=== PATIENT | female | born 1945 | race Caucasian/White ===

== ENCOUNTER → 2023-10-14 12:02 | Outpatient (REF) | payer MEDICARE, OTHER, SELFPAY | LOC: PAVMRI 12:02 | PROVIDERS: ATTENDING PHYSICIAN Specialist; FAMILY PHYSICIAN Family Medicine | DX: M25.551 Pain in right hip (principal) | CPT/HCPCS: 72148; 73721 ==

== ENCOUNTER → 2023-11-05 09:07 | Outpatient (REF) | payer MEDICARE, OTHER, SELFPAY ==
[2023-11-05 12:56] LABS: ALT (SGPT) 19 U/L (0-35); AST (SGOT) 26 U/L (14-36); Albumin 4.4 g/dl (3.5-5.0); Alkaline Phosphatase 73 U/L (38-126); Blood Urea Nitrogen 13 mg/dl (7-17); Calcium 9.7 mg/dl (8.4-10.2); Carbon Dioxide 26 mmol/L (22-30); Chloride 104 mmol/L (98-107); Glucose 98 mg/dl (70-99); HDL Cholesterol 74 mg/dl; LDL Cholesterol, Calculated 118 mg/dl; Potassium 4.8 mmol/L (3.5-5.1); Sodium 141 mmol/L (135-145); Total Bilirubin 0.6 mg/dl (0.2-1.3); Total Cholesterol 216 mg/dl (50-199); Total Protein 7.2 g/dl (6.3-8.2); Triglyceride 121 mg/dl (10-149); Very Low Density Lipoprotein 24 mg/dl (0-30); eGFR > 60.00
[2023-11-05 13:31] LABS: Urine Albumin Negative (Neg - Trace); Urine Bilirubin Negative (Negative); Urine Character Clear (Clear); Urine Color Yellow; Urine Glucose Negative (Negative); Urine Ketone Negative (Negative); Urine Leukocyte Negative (Negative); Urine Nitrite Negative (Negative); Urine Occult Blood Negative (Negative); Urine Urobilinogen Negative (Neg - 1+)
== END ==
LOC: REG 09:07
PROVIDERS: ATTENDING PHYSICIAN Family Medicine
DX: I10 Essential (primary) hypertension (principal); E78.00 Pure hypercholesterolemia, unspecified; N39.0 Urinary tract infection, site not specified
CPT/HCPCS: 36415; 80053; 80061; 81003; 87086

== ENCOUNTER → 2024-05-16 10:57 | Outpatient (REF) | payer MEDICARE, OTHER, SELFPAY | LOC: WDC 10:57 | PROVIDERS: ATTENDING PHYSICIAN Family Medicine | DX: Z12.31 Encounter for screening mammogram for malignant neoplasm of breast (principal); Z12.39 Encounter for other screening for malignant neoplasm of breast; Z85.3 Personal history of malignant neoplasm of breast | CPT/HCPCS: 77063; 77067 ==

== ENCOUNTER → 2024-08-28 14:56 | Outpatient (REF) | payer MEDICARE, OTHER, SELFPAY | LOC: RAD 14:56 | PROVIDERS: ATTENDING PHYSICIAN Family Medicine | DX: M54.50 Low back pain, unspecified (principal) | CPT/HCPCS: 72110 ==

== ENCOUNTER → 2024-11-01 08:20 | Outpatient (REF) | payer MEDICARE, OTHER, SELFPAY | LOC: HWRAD 08:20 | PROVIDERS: ATTENDING PHYSICIAN Family Medicine | DX: S32.010G Wedge compression fracture of first lumbar vertebra, subsequent encounter for fracture with delayed healing (principal); M85.89 Other specified disorders of bone density and structure, multiple sites | CPT/HCPCS: 77080 ==

== ENCOUNTER → 2024-11-13 10:51 | Outpatient (REF) | payer MEDICARE, OTHER, SELFPAY | LOC: RADI 10:51 | PROVIDERS: ATTENDING PHYSICIAN Physician Assistant | DX: S32.010A Wedge compression fracture of first lumbar vertebra, initial encounter for closed fracture (principal); W19.XXXA Unspecified fall, initial encounter ==

== ENCOUNTER → 2024-12-04 06:51 | Outpatient (REF) | payer MEDICARE, OTHER, SELFPAY ==
[2024-12-04] VITALS (14 sets, daily range): BP systolic 52–127; BP diastolic 46–89
[2024-12-04 07:22] LABS: Hematocrit 43.0 % (37.0-47.0); Hemoglobin 14.4 g/dL (12.0-16.0); Mean Corp Hgb Conc. 33.5 g/dL (33.0-37.0); Mean Corpuscular Volume 90.9 fL (81.0-99.0); Platelet Count 257 10^3/uL (130-400); Red Cell Dist. Width 13.1 % (11.5-14.5)
[2024-12-04 07:31] LABS: INR 0.96; PT 13.1 Sec (11.4-14.6)
[2024-12-04] MEDS: ANCEF 10 IV (08:45)
--- NOTE | 2024-12-04 11:12 | PTCARENOTE ---
IRAD note: pre procedure heart monitor showed patient's HR in 30-50's with BBB and 1st degree block. Asymptomatic. post vertebroplasty, pt's HR remained same as preprocedure but heart monitor showed more of irregular rhythm. pt is asymptomatic, per
patient and patient's daughter Lorene, pt doesn't have any cardiac history. notified. EKG ordered. 2 different EKGs have different reading , one with SB with 1st degree block and another one with SR with 2nd degree AV block. patient
notified of result. will take patient to ER for further evaluation.
--- NOTE | 2024-12-04 11:50 | PTCARENOTE ---
IRAD note: Took patient to ER triage after talking to ED charge nurse. right hand # [id number] left in place. ED nurse made aware. report given to ED nurse. daughter with patient at the time of transfer.
== END ==
LOC: RADI 06:51
PROVIDERS: ATTENDING PHYSICIAN Physician Assistant; FAMILY PHYSICIAN Family Medicine; REFERRING PHYSICIAN Physician Assistant
DX: S32.010A Wedge compression fracture of first lumbar vertebra, initial encounter for closed fracture (principal); D68.8 Other specified coagulation defects; M54.9 Dorsalgia, unspecified; X58.XXXA Exposure to other specified factors, initial encounter
CPT/HCPCS: 22514; 36415; 85027; 85610; 93005

== ENCOUNTER 2024-12-04 11:46 | Emergency (ER) | payer MEDICARE, OTHER, SELFPAY ==
[2024-12-04 11:51] VITALS: BP 109/62
[2024-12-04 12:04] VITALS: BP 132/109
--- NOTE | 2024-12-04 12:18 | ED.GENMED ---
History of Present Illness
General
Chief Complaint: Heart Rate Problem
Source: patient
Time Seen by Provider: 12/04/24 12:03
History of Present Illness
History of Present Illness:
79-year-old female with past medical history of hypertension, GERD, previous breast cancer status post vertebroplasty done 2 hours ago with interventional radiology here presenting to the ER after the procedure was completed and patient was
bradycardic, no history of bradycardia preoperatively patient is asymptomatic and otherwise states she feels well. Denies any use of beta-brielle medications. She has never seen cardiology in the past. Patient is denying any lightheadedness,
dizziness, sensation of syncope/near syncope, chest pain, shortness of breath, palpitations or any other concerns.
Past History
Past History
ED Past Medical History: Cancer (breast CA), GERD and HTN
ED Past Surgical History: Gynecological, Orthopedic and Other
Social History
Tobacco: Non-smoker
Alcohol: None
Drug: None
Personal:
Living: with family
Review of Systems
Review of Systems
All Other Systems: ROS reviewed and negative except as documented in HPI and ROS
Phy Exam
Physical Exam
Physical Exam:
GENERAL: Alert , in no apparent distress
EYE: conjunctiva clear
NECK: Supple
ENT: o/p clr, mmm.
CARDIAC: Regular rate bradycardic rate, intermittent ectopy noted on telemetry, rate between 38 bpm and 54 bpm but mostly sitting in the low 40s
LUNGS: Clear breath sounds bilaterally, no acute respiratory distress, no wheezes/rales/rhonchi
NEUROLOGICAL: Alert and oriented
SKIN: Warm and dry, skin intact.
MUSCULOSKELETAL: well perfused.
PSYCH: Normal and appropriate interaction.
Scores
Heart Failure Risk
Heart Failure Risk Score: Not Applicable
Heart Score for Chest Pain Patients
STEMI patient?: Not applicable
Withdrawal Assessment of Alcohol
Withdrawal Assessment Completed?: Not applicable
Course
Orders/Labs/Results
Orders:
Orders
12/04/24 12:08
Electrocardiogram (*1) Urgent
Reason for Study: Bradycardia / Tachycardia
EKG- Treatment ONCE
12/04/24 12:23
Complete Blood Count/With Diff Urgent
Comprehensive Metabolic Panel Urgent
Magnesium Urgent
TSH Urgent
Abnormal Lab Results
12/04/24
12:23
MPV 10.6 H fL
(7.4-10.4)
BUN 23 H mg/dl
(7-17)
Glucose 117 H mg/dl
(70-99)
12/04/24 12:23
12/04/24 12:23
Vital Signs
Initial and Last Documented VS:
Initial Vital Signs
Temp Pulse Resp BP Pulse Ox
98.0 F 46 20 109/62 96
12/04/24 11:51 12/04/24 11:51 12/04/24 11:51 12/04/24 11:51 12/04/24 11:51
Last Documented Vital Signs
Temp Pulse Resp BP Pulse Ox
98.0 F 43 10 111/73 97
12/04/24 11:51 12/04/24 14:45 12/04/24 14:45 12/04/24 14:00 12/04/24 14:45
[employer] consulted with Physician
[employer] consulted with physician?: Yes
Name of Physician Consulted: Noh
MDM/Problems Addressed
Differential Diagnosis Includes:
Asymptomatic bradycardia
First-degree heart block
Second-degree type I heart block
Side effect from anesthesia
Electrolyte imbalance
No concern for ACS
MDM/Problems Addressed:
79-year-old female presenting to the ER for evaluation after she had procedure done in IR today, following procedure found to be bradycardic into the low 30s. Patient asymptomatic. Her EKG from IR was reviewed which shows significant sinus
bradycardia with first-degree AV block. Here patient appears to still be in a sinus bradycardia with possible Mobitz type I heart block. Patient was placed on pacer pads, labs ordered. Cardiology team notified.
*Pulse Oximetry
SaO2: 96
Oxygen Mode of Delivery: Room air
Patient hypoxic: no
*EKG
Heart Rate: 50
Rate: bradycardiac
Rhythm: sinus
Interval: second degree mobitz I
Ischemia: no ischemia
*Clearing Supervisor Interpretation
Rate: bradycardiac
Heart Rate: 44
Rhythm: sinus
*Critical Care Note
Total Time (30-74mins, 75-104mins- exclusive of procedures): Not Applicable
Data Reviewed
Review of Other/Old Records Reveals: Records and Operative Reports
Source: patient, records and family
Patient Management
Discussion with other providers: Scalper Operator
Escalation/DeEscalation of care consider admission/obs:
Case discussed with cardiology team. Agree with EKG that patient has a Mobitz type I. At this time they recommend just observation. Patient can follow-up in office. Patient observed continuously on telemetry. At rest her heart rate would stay
around 40 bpm, while up and ambulating her heart rate would go up as high as 80 bpm. She has remained asymptomatic during this time. Will provide with outpatient cardiology information. Discussed return precautions to the ER including syncope,
near syncope, lightheadedness, chest pain or any other concerns. Patient is otherwise stable for discharge.
ED Attending Note
-
Portions of this chart may have been created with voice recognition software.� Occasional wrong word or��sound alike� substitutions may have occurred due to the inherent limitations of voice recognition software.
Discharge Plan
Departure
Patient Disposition: Home (Routine Discharge)
Date of Disposition: 12/04/24
Time of Disposition: 14:34
Patient with high blood pressure during this ER visit?: No
Discharge Problem:
Atrioventricular block, Mobitz type 1, [place]
Instructions: Heart Block, Adult (DC), Chest Pain DCA Follow Up
Prescriptions:
No Action
omeprazole 20 MG capsule,delayed release(DR/EC)
20 mg PO DAILY
simvastatin 10 MG tablet
10 mg PO QPM
hydrochlorothiazide 25 MG tablet
25 mg PO DAILY 0RF
Rx Instructions:
holed sbp <120
donepezil 10 mg Tablet
10 mg PO HS
tramadol 50 mg Tablet
50 mg PO Q8H PRN (Reason: pain)
calcium carbonate [Caltrate 600] 600 mg calcium (1,500 mg) Tablet
600 mg PO DAILY
lorazepam 0.5 mg Tablet
0.25 mg PO BID PRN (Reason: anxiety)
gabapentin 100 mg Capsule
200 mg PO BID
escitalopram oxalate 10 mg Tablet
10 mg PO DAILY
Probiotic 10 billion cell Capsule
10,000 mmu cells PO DAILY
Referrals:
Kelly Pearce MD [Family Provider, Family Practice]
Interventions
Interventions:
*Risk Screen - Suicide Last Done: 12/04/24 12:24
*General Assessment Last Done: 12/04/24 11:51
*Neglect/Abuse Screening Last Done: 12/04/24 12:24
*ED- Fall Risk Assessment Last Done: 12/04/24 12:24
*ED COVID-19 Vaccine History Last Done: 12/04/24 12:24
*Nursing Disposition Last Done: 12/04/24 15:17
ED- Cardiac Assessment Last Done: 12/04/24 12:27
ED- Pulmonary Assessment Last Done: 12/04/24 12:27
Discharge Date and Time
Discharge Date/Time: 12/04/24 15:18
Print Language: JAPANESE
[2024-12-04 12:24] VITALS: BMI 35.4
[2024-12-04 12:39] LABS: Hematocrit 42.4 % (37.0-47.0); Hemoglobin 14.0 g/dL (12.0-16.0); Mean Corp Hgb Conc. 33.0 g/dL (33.0-37.0); Mean Corpuscular Volume 92.8 fL (81.0-99.0); Nucleated Red Blood Cells % 0 %; Platelet Count 238 10^3/uL (130-400); Red Cell Dist. Width 13.2 % (11.5-14.5)
[2024-12-04 13:33] LABS: ALT (SGPT) 15 U/L (0-35); AST (SGOT) 21 U/L (14-36); Albumin 4.0 g/dl (3.5-5.0); Alkaline Phosphatase 53 U/L (38-126); Blood Urea Nitrogen 23 mg/dl (7-17); Calcium 9.4 mg/dl (8.4-10.2); Carbon Dioxide 30 mmol/L (22-30); Chloride 106 mmol/L (98-107); Estimated Creatinine Clearance 78 ml/min; Glucose 117 mg/dl (70-99); Magnesium 2.0 mg/dl (1.6-2.3); Potassium 4.4 mmol/L (3.5-5.1); Sodium 139 mmol/L (135-145); Total Protein 6.5 g/dl (6.3-8.2); eGFR > 60.00
[2024-12-04 14:00] VITALS: BP 111/73
[2024-12-04 14:01] LABS: TSH 1.25 uIU/ml (0.47-4.68)
== END 2024-12-04 15:18 | disposition home or self-care (01) ==
LOC: EMR 11:46
PROVIDERS: Physician Assistant Medical; EMERGENCY PHYSICIAN Emergency Medicine; FAMILY PHYSICIAN Family Medicine
DX: I44.1 Atrioventricular block, second degree (principal); I10 Essential (primary) hypertension; Z85.3 Personal history of malignant neoplasm of breast
CPT/HCPCS: 99284; 80053; 83735; 84443; 85025; 93005

== ENCOUNTER → 2025-02-13 12:08 | Outpatient (REF) | payer MEDICARE, OTHER, SELFPAY ==
[2025-02-13 12:51] LABS: ALT (SGPT) 18 U/L (0-35); AST (SGOT) 23 U/L (14-36); Albumin 4.7 g/dl (3.5-5.0); Alkaline Phosphatase 71 U/L (38-126); Blood Urea Nitrogen 13 mg/dl (7-17); Calcium 9.6 mg/dl (8.4-10.2); Carbon Dioxide 30 mmol/L (22-30); Chloride 101 mmol/L (98-107); Glucose 109 mg/dl (70-99); HDL Cholesterol 77 mg/dl; LDL Cholesterol, Calculated 112 mg/dl; Potassium 4.0 mmol/L (3.5-5.1); Sodium 140 mmol/L (135-145); Total Protein 7.5 g/dl (6.3-8.2); Very Low Density Lipoprotein 22 mg/dl (0-30); eGFR > 60.00
== END ==
LOC: OLABPV 12:08
PROVIDERS: ATTENDING PHYSICIAN Family Medicine
DX: I10 Essential (primary) hypertension (principal); E78.00 Pure hypercholesterolemia, unspecified
CPT/HCPCS: 36415; 80053; 80061